=== PATIENT | female | born 1950 | race Caucasian/White ===

== ENCOUNTER 2016-05-13 05:36 | Inpatient (IN) | payer BC, OTHER ==
[~2016-05-13] VITALS: Ht 142.2 cm; Wt 89.5 kg
[~2016-05-13 05:36] MED LIST: ALEVE220 MG PO; CALCIUM 600 +1 EAC7 PO; CALTRATE 600+D1 EAC1 PO; EFFEXOR75 MG PO; ENDOCET 5-3251 EACH PO; FOSAMAX70 MG PO; HYDROCHLOROTHIA25 MG PO; IRON325 MG PO; KEFLEX500 MG PO; LOFIBRA200 MG PO; MEVACOR10 M1 PO; NEURONTIN600 MG PO; OSTERA TABLET1 EACH PO; PERCOCET 5/31 TABLET PO; PRESERVISIO1 CAPSULE PO; PRESERVISION A1 EAC2 PO; ZESTRIL40 MG PO; ZOFRAN ODT4 MG PO
[2016-05-13 06:46] VITALS: BP 131/69
[2016-05-13 17:23] VITALS: BP 118/61
[2016-05-13 19:21] VITALS: BP 108/53
[2016-05-13 23:33] VITALS: BP 118/57
[2016-05-14 04:37] VITALS: BP 109/61
[2016-05-14 06:06] LABS: HEMATOCRIT 33.4 % (36.0-46.0)
[2016-05-14 07:43] VITALS: BP 116/61
== END 2016-05-14 10:44 | disposition home or self-care (01) | DRG 483 ==
LOC: 2SOUTH 05:36 → 3EAST 16:53
PROVIDERS: Orthopaedic Surgery
PROC: 0RRK00Z Replacement of Left Shoulder Joint with Reverse Ball and Socket Synthetic Substitute, Open Approach (ICD-10-PCS; principal; 2016-05-13)
DX: M75.102 Unspecified rotator cuff tear or rupture of left shoulder, not specified as traumatic (principal); I10 Essential (primary) hypertension; E78.00 Pure hypercholesterolemia, unspecified; F32.9 Major depressive disorder, single episode, unspecified; F17.200 Nicotine dependence, unspecified, uncomplicated
CPT/HCPCS: 85014; 85018; C1713; J0330; J0690; J1170; J2250; J2405; J2710; J2765; J2795; J3010; J7030; J7050

== ENCOUNTER 2016-12-23 13:01 | Day surgery (SDC) | payer BC, OTHER ==
[~2016-12-23] VITALS: Ht 142.2 cm; Wt 83.0 kg
[~2016-12-23 13:01] MED LIST changes: +ALEVE220 M2 PO; +IRON325 M1 PO; -IRON325 MG PO; +KENALOG,ARISTOC15 GM TP
[2016-12-23 13:24] VITALS: BP 170/81
[2016-12-23] MEDS ORDERED: NORCO 5/3251 TABLET PO (15:07)
[2016-12-23 16:00] VITALS: BP 123/70
[2016-12-23 16:55] VITALS: BP 145/61
== END 2016-12-23 17:08 | disposition home or self-care (01) ==
LOC: SDC 13:01
PROC: 0JBB0ZZ Excision of Perineum Subcutaneous Tissue and Fascia, Open Approach (ICD-10-PCS; principal; 2016-12-23)
DX: L73.2 Hidradenitis suppurativa (principal); I10 Essential (primary) hypertension; E78.5 Hyperlipidemia, unspecified; D64.9 Anemia, unspecified; F41.8 Other specified anxiety disorders; F17.200 Nicotine dependence, unspecified, uncomplicated; R94.31 Abnormal electrocardiogram [ECG] [EKG]
CPT/HCPCS: 80048; 88305; 93005; J0690; J2250; J3010; S0020